=== PATIENT | female | born 1940 | race Caucasian/White ===

== ENCOUNTER → 2016-12-24 | Outpatient (CLI) | payer MEDICARE ==
--- NOTE | 2016-12-24 12:26 | CT ---
EXAMINATION TYPE: CT chest wo con DATE OF EXAM: 12/24/2016 12:13 PM COMPARISON: Chest CT July 14, 2016 and low-dose lung screening CT May 01, 2016. HISTORY: Patient has no complaints at time of study. Follow up study for pulmonary nodule. CT DLP: 199.5 mGycm. Automated Exposure Control for Dose Reduction was Utilized. TECHNIQUE: CT scan of the thorax is performed without IV contrast. FINDINGS: LUNGS: Scattered micronodules are redemonstrated bilaterally. There is peripheral posterior fibrosis and/or atelectasis in both lower lobes redemonstrated. The lungs are grossly clear, there is no [place] new greater than 6 mm parenchymal mass or nodule identified. There is no pleural effusion or pneumothorax seen bilaterally. The tracheobronchial tree is patent. MEDIASTINUM: Lack of IV contrast is noted to limit evaluation for mediastinal and especially hilar ad enopathy. There are no definitive greater than 1 cm hilar or mediastinal lymph nodes. No cardiomega ly or pericardial effusion is seen. Coronary artery calcification is present. Mild to moderate calcif ied aftereffect change of aorta is present. There is ectasia of the abdominal aorta seen. Aorta measu res up to 3.1 cm transversely on axial image 71 unchanged from prior. Heterogeneous appearance to the thyroid gland is redemonstrated. Right lobe is asymmetrically more prominent. OTHER: Lobulated low dense thickening to both adrenal glands, left greater than right favors benign h yperplasia. IMPRESSION: 1. Some scattered micronodularity, no concerning greater than 6 mm parenchymal nodule or mass. 2. 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 No further follow-up necessary for SPN as per 2017 [employer] updated recommendations.
== END | disposition home or self-care (01) ==
LOC: RADCTMAIN 11:17
PROVIDERS: ATTEND Internal Medicine Sleep Medicine
DX: R91.8 Other nonspecific abnormal finding of lung field (principal); I71.4 Abdominal aortic aneurysm, without rupture
CPT/HCPCS: 71250